=== PATIENT | male | born 1970 | race Caucasian/White ===

== ENCOUNTER 2020-01-19 00:38 | Emergency (ER) | payer BC ==
[2020-01-19] MEDS ORDERED: Cephalexin 500 MG Cap PO ONE ×2 (00:39)
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
[2020-01-19] MEDS ORDERED: Cephalexin 500 MG Cap ONE (02:39)
[2020-01-19] MEDS ORDERED: Lidocaine 1% with EPINEPHrine 1:100,000 20 ML MDV INJECT ONE (02:42)
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
[2020-01-19] MEDS ORDERED: Bacitracin Oint 1 GM U/D Packet TOP ONE (02:43)
== END 2020-01-19 03:42 | disposition home or self-care (01) ==
LOC: DL.ED 00:38
DX: S02.2XXA Fracture of nasal bones, initial encounter for closed fracture (principal); S02.32XA Fracture of orbital floor, left side, initial encounter for closed fracture; S01.412A Laceration without foreign body of left cheek and temporomandibular area, initial encounter; S01.411A Laceration without foreign body of right cheek and temporomandibular area, initial encounter; E78.00 Pure hypercholesterolemia, unspecified; I10 Essential (primary) hypertension; Z79.899 Other long term (current) drug therapy; Y04.0XXA Assault by unarmed brawl or fight, initial encounter
CPT/HCPCS: 12013; 70450; 70486; 99284; A9270

== ENCOUNTER 2022-01-12 07:01 | Day surgery (SDC) | payer BC ==
[~2022-01-12 07:01] MED LIST: Dextrose 5%-0.45% NaCl 1,000 ML IV SCH; Midazolam 1 MG/ML 2 ML SDV ONE; Sodium Chloride 0.9% 10 ML Syringe FLUSH PRN; Sodium Chloride 0.9% 10 ML Syringe FLUSH SCH; fentaNYL 100 MCG/2 ML SDV ONE
[2022-01-12] MEDS ORDERED: Midazolam 1 MG/ML 2 ML SDV IV ONE ×7 (07:02→08:40)
[2022-01-12] MEDS ORDERED: fentaNYL 100 MCG/2 ML SDV IV ONE ×3 (07:02→08:31)
== END 2022-01-12 10:45 | disposition home or self-care (01) ==
LOC: DL.ENDO 07:01
PROVIDERS: ATTEND Internal Medicine Gastroenterology
DX: Z12.11 Encounter for screening for malignant neoplasm of colon (principal); K59.4 Anal spasm; I12.9 Hypertensive chronic kidney disease with stage 1 through stage 4 chronic kidney disease, or unspecified chronic kidney disease; E11.22 Type 2 diabetes mellitus with diabetic chronic kidney disease; N18.9 Chronic kidney disease, unspecified; H35.039 Hypertensive retinopathy, unspecified eye; E66.01 Morbid (severe) obesity due to excess calories; Z98.890 Other specified postprocedural states; Z90.49 Acquired absence of other specified parts of digestive tract; Z68.42 Body mass index [BMI] 45.0-49.9, adult; Z01.812 Encounter for preprocedural laboratory examination; Z20.822 Contact with and (suspected) exposure to COVID-19
CPT/HCPCS: J2250; J3010; J7042; U0002

== ENCOUNTER 2022-10-24 12:57 | Emergency (ER) | payer BC ==
[2022-10-24] MEDS ORDERED: Iopamidol 612 MG/ML 100 ML Bottle IVPUSH ONE (13:02)
[2022-10-24] MEDS ORDERED: Morphine 4 MG/ML Syringe IVPUSH ONE (13:08)
[2022-10-24] MEDS ORDERED: Ondansetron 4 MG/2 ML SDV IVPUSH ONE (13:08)
[2022-10-24 13:46] LABS: ANION GAP 18.5 mEq/L (7-13)
== END 2022-10-24 15:35 ==
LOC: DL.ED 12:57
DX: K42.0 Umbilical hernia with obstruction, without gangrene (principal); K56.600 Partial intestinal obstruction, unspecified as to cause; E78.00 Pure hypercholesterolemia, unspecified; I12.9 Hypertensive chronic kidney disease with stage 1 through stage 4 chronic kidney disease, or unspecified chronic kidney disease; E11.22 Type 2 diabetes mellitus with diabetic chronic kidney disease; N18.9 Chronic kidney disease, unspecified; Z79.84 Long term (current) use of oral hypoglycemic drugs; Z79.899 Other long term (current) drug therapy
CPT/HCPCS: 36415; 71045; 74177; 80053; 81001; 83690; 83880; 85025; 96374; 96375; 99284; 99285; J2270; J2405; Q9967